=== PATIENT | male | born 1980 | race Caucasian/White ===

== ENCOUNTER 2017-11-12 16:39 | Emergency (ER) | payer MEDICARE, MEDICAID ==
[~2017-11-12] VITALS: Ht 180.3 cm; Wt 63.1 kg
[~2017-11-12 16:39] MED LIST: NO HOME MEDS
[2017-11-12 16:55] VITALS: BP 128/86
[2017-11-12] MEDS ORDERED: CLIN-12 PO (18:05)
== END 2017-11-12 18:12 | disposition home or self-care (01) ==
LOC: ER 16:39
DX: K04.7 Periapical abscess without sinus (principal); Z88.0 Allergy status to penicillin; Z88.8 Allergy status to other drugs, medicaments and biological substances
CPT/HCPCS: 99283

== ENCOUNTER 2018-09-21 11:36 | Emergency (ER) | payer MEDICARE, MEDICAID ==
[~2018-09-21] VITALS: Ht 180.3 cm; Wt 62.0 kg
[~2018-09-21 11:36] MED LIST changes: +CLIN-12 PO; +CLIN150C8 PO
[2018-09-21 11:38] VITALS: BP 141/97
[2018-09-21] MEDS ORDERED: HYDR-4353 PO (12:56)
[2018-09-21] MEDS ORDERED: CLIN-96 PO (12:56)
== END 2018-09-21 13:07 | disposition home or self-care (01) ==
LOC: ER 11:36
DX: K91.89 Other postprocedural complications and disorders of digestive system (principal); K08.89 Other specified disorders of teeth and supporting structures; R22.0 Localized swelling, mass and lump, head; F17.200 Nicotine dependence, unspecified, uncomplicated; F12.90 Cannabis use, unspecified, uncomplicated; Z88.0 Allergy status to penicillin; Z88.8 Allergy status to other drugs, medicaments and biological substances; Z88.2 Allergy status to sulfonamides; Z79.899 Other long term (current) drug therapy; Z98.890 Other specified postprocedural states
CPT/HCPCS: 99283